=== PATIENT | male | born 1960 | race Caucasian/White ===

== ENCOUNTER 2019-06-01 12:39 | Outpatient (CLI) | payer OTHER, SELFPAY ==
[2019-06-01 13:48] LABS: Hemoglobin A1C 6.2 % (4.5-6.2)
[2019-06-01 14:03] LABS: CREATININE 1.04 mg/dL (0.70-1.30); TSH 38.29 uIU/mL (0.358-3.74)
== END 2019-06-01 12:59 ==
PROVIDERS: PCP General Practice; Visit Provider General Practice
DX: E10.9 Type 1 diabetes mellitus without complications (principal); E03.9 Hypothyroidism, unspecified
CPT/HCPCS: 36415; 82565; 83036; 84443

== ENCOUNTER 2021-01-15 13:05 | Outpatient (REF) | payer BC, SELFPAY ==
--- NOTE | 2021-01-15 12:15 | SKI_PTH ---
PATIENT: Troy Luna LOC: [facility] U#:[id number] AGE/SX: 60/M ROOM: RE01/15/[address]: Malika Byers : 1960 BED: DIS: 01/15/2021 SPEC #: [id number] RECD: 01/16/21 11:58 STATUS: CJ RECarlos #: [id number] THANH: 01/15/21 12:[address]: Malika Byers DEPT: Surgical Specimen RECD BY: Anita Davidson ENTERED: 01/16/21 12:00 SP TYPE: SKI OTHR DR: Vitor Henson Tissues: 1 - SKIN BIOPSY(SHAVE/PUNCH) Procedures: SKIN LEVEL 4 Comments: [id number]
== END 2021-01-15 13:06 | disposition home or self-care (01) ==
LOC: NCHCN 13:05
PROVIDERS: PCP General Practice; Visit Provider Family Medicine
DX: L82.1 Other seborrheic keratosis (principal)
CPT/HCPCS: 88305

== ENCOUNTER 2021-02-24 04:28 | Outpatient (CLI) | payer BC, SELFPAY ==
[2021-02-24 09:17] LABS: HCT 44.4 % (40.0-50.0); HGB 14.7 g/dL (13.5-17.5); MCH 30.9 pg (27.0-33.0); MCHC 33.1 % (32.0-36.0); MCV 93.3 fL (80-95); MPV 11.1 fL (8.0-11.0); Platelet Count 177 10^3/uL (130-400); RBC 4.76 10^6/uL (4.36-5.78); RDW 14.4 % (11.8-14.1); RDW-SD 50.4 fL; WBC 8.24 10^3/uL (4.4-10.8)
[2021-02-24 09:53] LABS: ALT 24 U/L (16-63); AST 14 U/L (15-37); Albumin 3.7 g/dL (3.4-5.0); Alkaline Phosphatase 74 U/L (46-116); Anion Gap 10.7 mmol/L (3-11); BUN 17 mg/dL (7-18); Bilirubin, Total 0.6 mg/dL (0.2-1.0); CO2 27.3 mmol/L (21.0-32.0); CREATININE 1.1 mg/dL (0.70-1.30); Calcium 9.1 mg/dL (8.5-10.1); Calculated LDL 149 mg/dL (<100); Chloride 102 mmol/L (98-107); Cholesterol 219 mg/dL (<200); Glucose 101 mg/dL (74-106); HDL Cholesterol 38 mg/dL (40-60); Sodium 140 mmol/L (136-145); TSH (W/Ref FT4) 1.54 uIU/mL (0.36-3.74); Total Protein 7.3 g/dL (6.4-8.2); Triglyceride 160 mg/dL (<150)
== END 2021-02-24 04:29 | disposition home or self-care (01) ==
LOC: LBO 04:28
PROVIDERS: PCP Family Medicine; Visit Provider Family Medicine
DX: Z00.00 Encounter for general adult medical examination without abnormal findings (principal); E11.9 Type 2 diabetes mellitus without complications; E03.9 Hypothyroidism, unspecified; Z13.220 Encounter for screening for lipoid disorders; E55.9 Vitamin D deficiency, unspecified
CPT/HCPCS: 36415; 80053; 80061; 82306; 85027; 84443

== ENCOUNTER 2023-01-08 16:58 | Outpatient (REF) | payer BC, SELFPAY ==
[2023-01-08 14:00] LABS: ALT 25 U/L (16-63); AST 18 U/L (15-37); Albumin 4.1 g/dL (3.4-5.0); Alkaline Phosphatase 82 U/L (46-116); Anion Gap 7.4 mmol/L (3-11); BUN 15 mg/dL (7-18); Bilirubin, Total 0.9 mg/dL (0.2-1.0); CO2 30.6 mmol/L (21.0-32.0); CREATININE 1.2 mg/dL (0.70-1.30); Calcium 9.8 mg/dL (8.5-10.1); Calculated LDL 122 mg/dL (<100); Chloride 100 mmol/L (98-107); Cholesterol 199 mg/dL (<200); Estimated GFR 67.95 (mL/min/1.73m2); Glucose 103 mg/dL (74-106); HDL Cholesterol 45 mg/dL (40-60); Potassium 4.3 mmol/L (3.5-5.1); Sodium 138 mmol/L (136-145); TSH (W/Ref FT4) 1.45 uIU/mL (0.36-3.74); Total Protein 7.8 g/dL (6.4-8.2); Triglyceride 161 mg/dL (<150)
[2023-01-08 22:42] LABS: PSA, Screening 1.7 ng/mL (<=4.5)
== END 2023-01-08 16:59 | disposition home or self-care (01) ==
LOC: NCHCN 16:58
PROVIDERS: PCP Family Medicine; Visit Provider Family Medicine
DX: E03.9 Hypothyroidism, unspecified (principal); E11.9 Type 2 diabetes mellitus without complications; E66.9 Obesity, unspecified; Z12.5 Encounter for screening for malignant neoplasm of prostate
CPT/HCPCS: 80053; 80061; 84153; 84443

== ENCOUNTER 2025-01-10 13:14 | Outpatient (REF) | payer BC, SELFPAY ==
[2025-01-10 17:28] LABS: ALT 19 U/L (16-63); AST 15 U/L (15-37); Albumin 3.9 g/dL (3.4-5.0); Alkaline Phosphatase 89 U/L (46-116); Anion Gap 8.9 mmol/L (3-11); BUN 17 mg/dL (7-18); Bilirubin, Total 0.47 mg/dL (0.2-1.0); CO2 30.1 mmol/L (21.0-32.0); CREATININE 1.2 mg/dL (0.70-1.30); Calcium 9.5 mg/dL (8.5-10.1); Calculated LDL 89 mg/dL (<100); Chloride 105 mmol/L (98-107); Cholesterol 206 mg/dL (<200); Estimated GFR 67.11 (mL/min/1.73m2); Glucose 99 mg/dL (74-106); HDL Cholesterol 46 mg/dL (40-60); Potassium 4.4 mmol/L (3.5-5.1); Sodium 144 mmol/L (136-145); TSH (W/Ref FT4) 53.72 uIU/mL (0.36-3.74); Total Protein 7.6 g/dL (6.4-8.2); Triglyceride 358 mg/dL (<150)
[2025-01-10 17:30] LABS: Hemoglobin A1C 5.9 % (<5.7)
[2025-01-10 18:31] LABS: FREE T4 0.44 ng/dL (0.76-1.46); Uric Acid 6.9 mg/dL (3.5-7.2)
== END 2025-01-10 13:15 | disposition home or self-care (01) ==
LOC: NCHCN 13:14
PROVIDERS: PCP Family Medicine; Visit Provider Family Medicine
DX: E66.9 Obesity, unspecified (principal); M10.9 Gout, unspecified; I10 Essential (primary) hypertension; E03.9 Hypothyroidism, unspecified
CPT/HCPCS: 80053; 80061; 83036; 84439; 84443; 84550

== ENCOUNTER 2025-04-25 09:58 | Outpatient (CLI) | payer BC, SELFPAY ==
[2025-04-25 14:55] LABS: FREE T4 0.99 ng/dL (0.76-1.46); TSH 0.65 uIU/mL (0.36-3.74)
== END 2025-04-25 09:59 | disposition home or self-care (01) ==
LOC: LBO 09:58
PROVIDERS: PCP Family Medicine; Visit Provider Family Medicine
DX: E03.9 Hypothyroidism, unspecified (principal)
CPT/HCPCS: 36415; 84439; 84443